=== PATIENT | female | born 1960 | race Caucasian/White ===

== ENCOUNTER 2017-07-03 01:20 | Emergency (ER) | payer BC ==
[~2017-07-03 01:20] MED LIST: Sodium Chloride 0.9% 1,000 ML IV SCH
[2017-07-03] MEDS ORDERED: fentaNYL 100 MCG/2 ML SDV IVPUSH PRN (01:44)
[2017-07-03] MEDS ORDERED: Ondansetron 4 MG/2 ML SDV IVPUSH ONE (01:44)
--- NOTE | 2017-07-03 01:49 | EDM.PDOC ---
ED HPI GENERAL MEDICAL PROBLEM - General Time Seen by Provider: 07/03/17 01:22 Source of Information: Reports: Patient, EMS History Limitations: Reports: No Limitations, Intoxication - History of Present Illness INITIAL COMMENTS - FREE TEXT/NARRATIVE: Patient was brought in by EMS today after sustaining a fall at home. Patient's had about 4 or 5 alcoholic drinks and was trying to cross over a rug however she ended up falling and landed on her right side of her hip causing severe pain right away. She is externally rotated and her leg is shortened about an inch and half. States she is did not hit her head she is not dizzy lightheaded, nausea or vomiting. 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 [No Known Home Meds] 07/03/17 [History] Past Medical History Gastrointestinal History: Reports: GI Bleed, PUD Hematologic History: Reports: Anemia, Iron Deficiency - Past Surgical History GI Surgical History: Reports: Bariatric Procedure Social & Family History - Tobacco Use Smoking Status *Q: Current Every Day Smoker Years of Tobacco use: 40 Packs/Tins Daily: 0.5 - Recreational Drug Use Recreational Drug Use: No Review of Systems - Review of Systems Review Of Systems: See Below Constitutional: Reports: No Symptoms Ears: Reports: No Symptoms Mouth/Throat: Reports: No Symptoms Respiratory: Reports: No Symptoms Cardiovascular: Reports: No Symptoms GI/Abdominal: Reports: No Symptoms Musculoskeletal: Reports: Leg Pain (right hip) Skin: Reports: No Symptoms Neurological: Reports: No Symptoms ED EXAM, GENERAL - Physical Exam Exam: See Below Exam Limited By: No Limitations General Appearance: Alert, WD/WN, No Apparent Distress Respiratory/Chest: No Respiratory Distress, Lungs Clear, Normal Breath Sounds, No Accessory Muscle Use, Chest Non-Tender Cardiovascular: Normal Peripheral Pulses, Regular Rate, Rhythm, No Edema GI/Abdominal: Normal Bowel Sounds, Soft Back Exam: Normal Inspection Extremities: Leg Pain (right leg- externally rotated and shortened. pulses present, no redness, swelling. Severe pain noted ), Limited Range of Motion Neurological: Alert, Oriented Psychiatric: Normal Mood Skin Exam: Warm, Dry, Intact, Normal Color, No Rash Course - Orders/Labs/Meds Orders: Active Orders 24 hr Category Date Time Status Hip Min 2V or 3V Rt [CR] Stat Exams 07/03/17 01:43 Ordered CBC WITH AUTO DIFF [HEME] Stat Lab 07/03/17 01:44 Ordered COMPREHENSIVE METABOLIC PN,CMP [CHEM] Stat Lab 07/03/17 01:44 Ordered ETHANOL BLOOD MEDICAL [CHEM] Stat Lab 07/03/17 01:44 Ordered INR,PT,PROTHROMBIN TIME [COAG] Stat Lab 07/03/17 01:44 Ordered fentaNYL [Sublimaze] Med 07/03/17 01:44 Active 50 mcg IVPUSH ASDIRECTED PRN Medication Orders Fentanyl (Sublimaze) 50 mcg IVPUSH ASDIRECTED PRN PRN Reason: Pain Last Admin: 07/03/17 01:50 Dose: 50 mcg Meds: Medications Generic Name Dose Route Start Last Admin Trade Name Freq PRN Reason Stop Dose Admin Fentanyl 50 mcg 07/03/17 01:44 07/03/17 01:50 Sublimaze IVPUSH 50 mcg ASDIRECTED PRN Administration Pain Discontinued Medications Generic Name Dose Route Start Last Admin Trade Name Freq PRN Reason Stop Dose Admin Ondansetron HCl 4 mg 07/03/17 01:44 Zofran IVPUSH 07/03/17 01:45 ONETIME ONE - Radiology Interpretation Free Text/Narrative:: Xray- right femoral neck fracture Departure - Departure Time of Disposition: 02:40 Disposition: DC/Tfer to Acute Hospital 02 Condition: Good Clinical Impression: Closed right femoral fracture Qualifiers: Encounter type: initial encounter Femur location: neck Qualified Code(s): S72.001A - Fracture of unspecified part of neck of right femur, initial encounter for closed fracture - Discharge Information Forms: Interfacility Transfer EMTALA - My Orders Last 24 Hours: My Active Orders 07/03/17 01:43 Hip Min 2V or 3V Rt [CR] Stat 07/03/17 01:44 CBC WITH AUTO DIFF [HEME] Stat COMPREHENSIVE METABOLIC PN,CMP [CHEM] Stat ETHANOL BLOOD MEDICAL [CHEM] Stat INR,PT,PROTHROMBIN TIME [COAG] Stat fentaNYL [Sublimaze] 50 mcg IVPUSH ASDIRECTED PRN - Assessment/Plan Last 24 Hours: My Active Orders 07/03/17 01:43 Hip Min 2V or 3V Rt [CR] Stat 07/03/17 01:44 CBC WITH AUTO DIFF [HEME] Stat COMPREHENSIVE METABOLIC PN,CMP [CHEM] Stat ETHANOL BLOOD MEDICAL [CHEM] Stat INR,PT,PROTHROMBIN TIME [COAG] Stat fentaNYL [Sublimaze] 50 mcg IVPUSH ASDIRECTED PRN
[2017-07-03 02:42] LABS: CHLORIDE,CL 102 mmol/L (98-107); SODIUM,NA 139 mmol/L (136-145)
[2017-07-03 03:06] VITALS: BP 148/93
== END 2017-07-03 02:45 | disposition short-term general hospital (02) ==
LOC: VM.ED 01:20
DX: S72.001A Fracture of unspecified part of neck of right femur, initial encounter for closed fracture (principal); F17.210 Nicotine dependence, cigarettes, uncomplicated; W19.XXXA Unspecified fall, initial encounter; Y92.009 Unspecified place in unspecified non-institutional (private) residence as the place of occurrence of the external cause
CPT/HCPCS: 36415; 80053; 85025; 85610; 94760; 96361; 96374; 99285; G0480; J3010; J7030

== ENCOUNTER 2017-07-12 01:25 | Emergency (ER) | payer BC ==
[2017-07-12] MEDS ORDERED: Sodium Chloride 0.9% 1,000 ML IV ONE (01:54)
[2017-07-12] MEDS ORDERED: HYDROmorphone 1 MG/ML Syringe IVPUSH ONE (01:55)
[2017-07-12] MEDS ORDERED: Iopamidol 612 MG/ML 100 ML Bottle IVPUSH ONE (02:24)
[2017-07-12 02:42] LABS: CHLORIDE,CL 104 mmol/L (98-107); SODIUM,NA 140 mmol/L (136-145)
[2017-07-12] MEDS ORDERED: Piperacillin/Tazobactam 3.375 GM in Sodium Chloride 0.9% 100 ML IV ONE (03:29)
--- NOTE | 2017-07-12 03:41 | EDM.PDOC ---
ED HPI GENERAL MEDICAL PROBLEM - General Chief Complaint: Abdominal Pain Stated Complaint: Abdominal pain, left shoulder pain Time Seen by Provider: 07/12/17 01:30 Source of Information: Reports: Patient History Limitations: Reports: No Limitations - History of Present Illness INITIAL COMMENTS - FREE TEXT/NARRATIVE: Pt. presents to ER with upper abdominal pain with radiation into her upper back/ L shoulder area. She states that she began experiencing the discomfort shortly before coming to the ER. She denies any chest pain, shortness of breath, or lightheadedness. She did call EMS and was nauseated. She was given zofran and dilaudid by EMS. 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 Onset: Today Location: Reports: Abdomen Severity: Severe mid abdominal Pain Score (Numeric/FACES): 8 - Related Data Allergies Allergy/AdvReac Type Severity Reaction Status Date / Time No Known Allergies Allergy Verified 07/12/17 01:33 Home Meds: Home Meds Enoxaparin [Lovenox] 40 mg SQ DAILY 07/12/17 [History] Past Medical History Gastrointestinal History: Reports: GI Bleed, PUD Hematologic History: Reports: Anemia, Iron Deficiency - Past Surgical History HEENT Surgical History: Reports: Tonsillectomy GI Surgical History: Reports: Bariatric Procedure Musculoskeletal Surgical History: Reports: Hip Replacement Other Musculoskeletal Surgeries/Procedures:: recent hip fx, right Social & Family History - Tobacco Use Smoking Status *Q: Current Every Day Smoker Years of Tobacco use: 30 Packs/Tins Daily: 0.5 - Recreational Drug Use Recreational Drug Use: No ED ROS GENERAL - Review of Systems Review Of Systems: See Below Constitutional: Reports: No Symptoms HEENT: Reports: No Symptoms Respiratory: Reports: No Symptoms Cardiovascular: Reports: No Symptoms Endocrine: Reports: No Symptoms GI/Abdominal: Reports: Abdominal Pain, Nausea : Reports: No Symptoms Musculoskeletal: Reports: No Symptoms Skin: Reports: No Symptoms Neurological: Reports: No Symptoms Psychiatric: Reports: No Symptoms Hematologic/Lymphatic: Reports: No Symptoms Immunologic: Reports: No Symptoms ED EXAM, GI/ABD - Physical Exam Exam: See Below Exam Limited By: No Limitations General Appearance: Alert, WD/WN, No Apparent Distress Throat/Mouth: Normal Inspection, Normal Lips, Normal Teeth, Normal Gums, Normal Oropharynx, Normal Voice, No Airway Compromise Neck: Normal Inspection, Supple, Non-Tender, Full Range of Motion Respiratory/Chest: No Respiratory Distress, Lungs Clear, Normal Breath Sounds, No Accessory Muscle Use, Chest Non-Tender Cardiovascular: Normal Peripheral Pulses, Regular Rate, Rhythm, No Edema, No Gallop, No JVD, No Murmur, No Rub GI/Abdominal Exam: Soft, No Organomegaly, Tender Back Exam: Normal Inspection, Full Range of Motion, NT Extremities: Normal Inspection, Normal Range of Motion, Non-Tender, Normal Capillary Refill, No Pedal Edema Neurological: Alert, Oriented, CN II-XII Intact, Normal Cognition, Normal Gait, Normal Reflexes, No Motor/Sensory Deficits Psychiatric: Normal Affect, Normal Mood Skin Exam: Warm, Dry, Intact, Normal Color, No Rash Lymphatic: No Adenopathy Course - Vital Signs Last Recorded V/S: Last Vital Signs Temp 36.3 C 07/12/17 01:30 Pulse 77 07/12/17 01:30 Resp 13 07/12/17 01:30 BP 163/81 H 07/12/17 01:30 Pulse Ox 96 07/12/17 01:30 - Orders/Labs/Meds Orders: Active Orders 24 hr Category Date Time Status Chest Abdomen Pelvis w Cont [CT] Stat Exams 07/12/17 02:05 Taken Piperacillin/Tazobactam [Zosyn] 3.375 gm Med 07/12/17 03:29 Ordered Sodium Chloride 0.9% [Normal Saline] 100 ml IV ONETIME Sodium Chloride 0.9% [Normal Saline] 1,000 ml Med 07/12/17 01:54 Active IV .BOLUS Medication Orders Sodium Chloride (Normal Saline) 1,000 mls @ 125 mls/hr IV .BOLUS ONE Stop: 07/12/17 09:53 Last Admin: 07/12/17 02:11 Dose: 125 mls/hr Piperacillin Sod/Tazobactam (Sod 3.375 gm/ Sodium Chloride) 100 mls @ 200 mls/ hr IV ONETIME ONE Stop: 07/12/17 03:58 Labs: Laboratory Tests 07/12/17 07/12/17 07/12/17 Range/Units 02:16 02:16 02:16 WBC 7.6 (4.0-10.0) x10^3/uL RBC 3.62 L (4.00-5.50) x10^6/uL Hgb 10.4 L D (12.0-16.0) g/dL Hct 32.6 L (33.0-47.0) % MCV 90.1 (78.0-93.0) fL MCH 28.7 (26.0-32.0) pg MCHC 31.9 L (32.0-36.0) g/dL RDW Coeff of Adam 13.6 (10.0-15.0) % Plt Count 350 D (130-400) x10^3/uL Neut % (Auto) 71.3 (50.0-80.0) % Lymph % (Auto) 18.6 L (25.0-50.0) % Mcculloch % (Auto) 6.8 (2.0-11.0) % Eos % (Auto) 2.9 (0.0-4.0) % Baso % (Auto) 0.4 (0.2-1.2) % PT 9.7 L (9.8-11.8) SEC INR 0.9 L (2.0-3.5) Sodium 140 (136-145) mmol/L Potassium 3.8 (3.5-5.1) mmol/L Chloride 104 (98-107) mmol/L Carbon Dioxide 28 (21-32) mmol/L BUN 12 (7-18) mg/dL Creatinine 0.7 (0.55-1.02) mg/dL Est Cr Clr Drug Dosing 82.01 mL/min Estimated GFR (MDRD) > 60 Glucose 122 H (74-106) mg/dL Calcium 8.5 (8.5-10.1) mg/dL Corrected Calcium 9.70 (8.5-10.1) mg/dL Total Bilirubin 0.3 (0.2-1.0) mg/dL AST 29 (15-37) U/L ALT 22 (14-59) U/L Alkaline Phosphatase 78 (46-116) U/L Total Protein 6.2 L (6.4-8.2) g/dL Albumin 2.5 L (3.4-5.0) g/dL Globulin 3.7 Albumin/Globulin Ratio 0.68 Meds: Medications Generic Name Dose Route Start Last Admin Trade Name Freq PRN Reason Stop Dose Admin Sodium Chloride 1,000 mls @ 125 mls/hr 07/12/17 01:54 07/12/17 02:11 Normal Saline IV 07/12/17 09:53 125 mls/hr .BOLUS ONE Administration Piperacillin Sod/Tazobactam 100 mls @ 200 mls/hr 07/12/17 03:29 Sod 3.375 gm/ Sodium Chloride IV 07/12/17 03:58 ONETIME ONE Discontinued Medications Generic Name Dose Route Start Last Admin Trade Name Freq PRN Reason Stop Dose Admin Hydromorphone HCl 1 mg 07/12/17 01:55 07/12/17 02:34 Dilaudid IVPUSH 07/12/17 01:56 1 mg ONETIME ONE Administration Iopamidol 100 ml 07/12/17 02:24 07/12/17 02:36 Isovue-300 (61%) IVPUSH 07/12/17 02:25 100 ml ONETIME ONE Administration - Radiology Interpretation Free Text/Narrative:: CT chest abd. pelvis reveals free air in area of gastric bypass consistent with recurrent perf. similar to that in 2016. Departure - Departure Time of Disposition: 03:49 Disposition: DC/Tfer to Acute Hospital 02 Condition: Critical Clinical Impression: Rupture of stomach Abdominal pain Qualifiers: Abdominal location: left upper quadrant Qualified Code(s): R10.12 - Left upper quadrant pain - Discharge Information Forms: ED Department Discharge - My Orders Last 24 Hours: My Active Orders 07/12/17 01:54 Sodium Chloride 0.9% [Normal Saline] 1,000 ml IV .BOLUS 07/12/17 02:05 Chest Abdomen Pelvis w Cont [CT] Stat 07/12/17 03:29 Piperacillin/Tazobactam [Zosyn] 3.375 gm Sodium Chloride 0.9% [Normal Saline] 100 ml IV ONETIME - Assessment/Plan Last 24 Hours: My Active Orders 07/12/17 01:54 Sodium Chloride 0.9% [Normal Saline] 1,000 ml IV .BOLUS 07/12/17 02:05 Chest Abdomen Pelvis w Cont [CT] Stat 07/12/17 03:29 Piperacillin/Tazobactam [Zosyn] 3.375 gm Sodium Chloride 0.9% [Normal Saline] 100 ml IV ONETIME Assessment:: Perforated stomach, recurrent. Plan: NS at 125ml/hr. Dilaudid 1mg IV every 30mg prn-pain. Start zosyn 3.375gm IV. Transport via [facility]. Dr. Mott is accepting.
[2017-07-12 04:12] VITALS: BP 125/71
== END 2017-07-12 04:35 | disposition short-term general hospital (02) ==
LOC: VM.ED 01:25
DX: K63.1 Perforation of intestine (nontraumatic) (principal); F17.210 Nicotine dependence, cigarettes, uncomplicated; Z79.02 Long term (current) use of antithrombotics/antiplatelets
CPT/HCPCS: 36415; 71260; 74177; 80053; 85025; 85610; 94760; 96361; 96365; 96375; 99285; J1170; J2543; J7030; J7050; Q9967